=== PATIENT | male | born 1985 | race Caucasian/White ===

== ENCOUNTER 2016-02-10 10:42 | Emergency (ER) | payer OTHER ==
[~2016-02-10] VITALS: Wt 90.0 kg
[~2016-02-10 10:42] MED LIST: ALBU8.5H5 IH; HYDR-762 PO
[2016-02-10] MEDS ORDERED: ACETAMINOPHEN 500 MG TAB PO STA (11:11)
[2016-02-10] MEDS ORDERED: CEPH-443 PO (11:17)
[2016-02-10] MEDS ORDERED: IBUP-1542 PO (11:17)
[2016-02-10] MEDS ORDERED: LORA1TAB PO (11:21)
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
[2016-02-10] MEDS ORDERED: LORAZEPAM 1 MG TAB PO ONE (11:30)
[2016-02-10] MEDS ORDERED: CEPHALEXIN 500 MG CAP PO ONE (11:30)
== END 2016-02-10 11:34 | disposition home or self-care (01) ==
LOC: FTE 10:42
DX: K08.89 Other specified disorders of teeth and supporting structures (principal); S09.93XA Unspecified injury of face, initial encounter; J45.909 Unspecified asthma, uncomplicated; X58.XXXA Exposure to other specified factors, initial encounter; Y92.9 Unspecified place or not applicable; Z72.0 Tobacco use
CPT/HCPCS: 99284

== ENCOUNTER 2017-01-25 14:49 | Emergency (ER) | payer OTHER ==
[~2017-01-25] VITALS: Ht 172.7 cm; Wt 72.4 kg
[~2017-01-25 14:49] MED LIST changes: +CEPH-443 PO; +IBUP-1542 PO; +LORA1TAB PO
[2017-01-25 14:50] VITALS: Ht 172.7 cm; Wt 72.4 kg
--- NOTE | 2017-01-25 17:07 | ERD ---
ER Documentation Chief Complaint Chief Complaint right upper and lower dental pain x 3 days HPI 31-year-old male presents emergency department for right upper and lower dental pain for 3 days. Stated that he has a tooth decay. Also added that he has not seen his dentist for a while. Denies headache, dizziness, blurred vision, head injury, facial injury, neck pain, throat pain, difficulty swallowing, shoulder pain, chest pain, back pain, abdominal pain, nausea, vomiting, constipation, diarrhea, urinary symptoms, loss of bowel and bladder control, recent travel, recent long travel, difficulty breathing when lying flat, recent antibiotic use in the last 3 months, fever, chills. Past medical history of asthma. No surgical history. Social: Stated that he is homeless. Admitted that he smokes marijuana. ROS All systems reviewed and are negative except as per history of present illness. Medications Home Meds Active Scripts Naproxen* (Naprosyn*) 500 Mg Tablet, 500 MG PO BID Y for PAIN AND/OR INFLAMMATION, #30 TAB Prov:PASILABANDARRELLAUGUSTUS F 01/25/17 Amoxicillin* (Amoxicillin*) 500 Mg Cap, 500 MG PO TID for 7 Days, CAP Prov:PASILABAN,DARRELLAR F 01/25/17 Lorazepam* (Lorazepam*) 1 Mg Tablet, 1 MG PO Q8, #3 TAB Prov:ALDO PHAM MD 02/10/16 Ibuprofen* (Motrin*) 600 Mg Tab, 600 MG PO Q6, #20 TAB Prov:ALDO PHAM MD 02/10/16 Cephalexin* (Keflex*) 500 Mg Capsule, 500 MG PO QID for 7 Days, CAP Prov:ALDO PHAM MD 02/10/16 Hydrocodone Bit-Acetaminophen* ([place]*) 10-325 Mg Tablet, 1 TAB PO Q6 Y for PAIN , #12 TAB Prov:JASMEET CONRAD MD 12/16/14 Reported Medications Albuterol Sulfate* (Albuterol Sulfate* HFA) 8.5 Gm Hfa.aer.ad, 2 PUFF IH Q4H Y for WHEEZING AND SOB, EA 12/16/14 Allergies Allergies: Coded Allergies: No Known Allergy (Unverified , 12/16/14) PMhx/Soc Hx Alcohol Use: Yes Hx Substance Use: Yes Hx Tobacco Use: Yes Physical Exam Vitals Vital Signs Date Time Temp Pulse Resp B/P Pulse Ox O2 Delivery O2 Flow Rate FiO2 01/25/17 14:50 97.9 114 18 154/81 100 Physical Exam Const: Well-appearing. Not in acute respiratory distress. Head: Atraumatic Eyes: Normal Conjunctiva. No pain in eye movement. Extraocular movement of his eyes is within normal limits. ENT: Normal External Ears, Nose and Mouth. Throat: Uvula is midline not displaced. Tonsils are +1 bilaterally without redness without exudates. Tolerating secretions. Patent airway. Speaks full and clear sentences. Right upper first molar has a tooth decay with tenderness to palpation. Right lower third molar has tooth decay. No bleeding. No discharge. Neck: Full range of motion..~ No meningismus. Resp: Clear to auscultation bilaterally Cardio: Regular rate and rhythm, no murmurs Abd: Soft, non tender, non distended. Normal bowel sounds Skin: No petechiae or rashes Back: No midline or flank tenderness Ext: No cyanosis, or edema Neur: Awake and alert Psych: Normal Mood and Affect Results 24 hrs Current Medications Medications (Trade) Dose Ordered Sig/Naun Route PRN Reason Start Time Stop Time Status Last Admin Dose Admin Ibuprofen (Motrin) 800 mg ONCE ONCE PO 01/25/17 17:30 01/25/17 17:31 DC 01/25/17 17:18 Procedures/MDM Differential: I have low suspicion for peritonsillar abscess, sepsis, strep throat due to my physical exam. Final diagnosis: Tooth decay, tooth abscess. Prescription: Amoxicillin. Naprosyn. Follow-up with PCP in the next 3-4 days. Follow-up with the dentist in the next 2-3 days. Come back here in the emergency department for any new symptoms or any worsening of symptoms. All questions and concerns are answered. Patient verbalized understanding and agreed with the plan of care. Hemodynamically stable on discharge. Departure Diagnosis: Primary Impression: Tooth decay Additional Impression: Tooth decayed Condition: Stable Additional Instructions: Follow-up with PCP in the next 3-4 days. Follow-up with the dentist in the next 2-3 days. Come back here in the emergency department for any new symptoms or any worsening of symptoms. All questions and concerns are answered. Patient verbalized understanding and agreed with the plan of care. EULALIO MARIE Jan 25, 2017 17:07
[2017-01-25] MEDS ORDERED: AMOX500C2 PO (17:08)
[2017-01-25] MEDS ORDERED: NAPR-260 PO (17:08)
[2017-01-25] MEDS ORDERED: IBUPROFEN 800 MG TAB PO ONE (17:30)
== END 2017-01-25 17:41 | disposition home or self-care (01) ==
LOC: FTE 14:49
DX: K02.9 Dental caries, unspecified (principal); J45.909 Unspecified asthma, uncomplicated; Z87.891 Personal history of nicotine dependence
CPT/HCPCS: Z7502; Z7610; 99283

== ENCOUNTER 2017-06-26 14:16 | Emergency (ER) | END 2017-06-26 15:02 | disposition left against medical advice (07) ==

== ENCOUNTER 2018-06-04 16:52 | Emergency (ER) | payer SELFPAY ==
[~2018-06-04] VITALS: Ht 160 cm; Wt 68.0 kg
[~2018-06-04 16:52] MED LIST changes: +AMOX500C2 PO; +NAPR-985 PO
[2018-06-04 17:09] VITALS: BP 135/68; PULSE 70; RESP 18; Ht 160 cm; Wt 68.0 kg
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
== END 2018-06-04 17:43 | disposition left against medical advice (07) ==
LOC: E/R 16:52
DX: S00.83XA Contusion of other part of head, initial encounter (principal); V89.2XXA Person injured in unspecified motor-vehicle accident, traffic, initial encounter; Z87.891 Personal history of nicotine dependence
CPT/HCPCS: 99283

== ENCOUNTER 2018-06-04 19:08 | Emergency (ER) | payer SELFPAY | END 2018-06-04 19:33 | disposition left against medical advice (07) | LOC: E/R 19:08 | DX: Z53.21 Procedure and treatment not carried out due to patient leaving prior to being seen by health care provider (principal) ==

== ENCOUNTER 2018-06-04 19:12 | Emergency (ER) | payer SELFPAY ==
[~2018-06-04] VITALS: Ht 172.7 cm; Wt 67.3 kg
[2018-06-04 19:19] VITALS: BP 154/91; PULSE 99; RESP 20; Ht 172.7 cm; Wt 67.3 kg
== END 2018-06-04 20:35 | disposition left against medical advice (07) ==
LOC: FTE 19:12
DX: Z53.21 Procedure and treatment not carried out due to patient leaving prior to being seen by health care provider (principal)